=== PATIENT | male | born 1975 | race Hispanic/Latino ===

== ENCOUNTER → 2017-09-23 | Outpatient (CLI) | payer OTHER | LOC: YCFC.O 09-18 17:21 | DX: Z00.00 Encounter for general adult medical examination without abnormal findings (principal) ==

== ENCOUNTER → 2018-02-24 | Outpatient (CLI) | payer OTHER | LOC: YCFC.O 02-19 13:10 | DX: E11.65 Type 2 diabetes mellitus with hyperglycemia (principal) ==

== ENCOUNTER → 2018-06-24 | Outpatient (CLI) | payer OTHER | LOC: LAB.O 10:47 | PROVIDERS: ATTEND Family Medicine | DX: E11.9 Type 2 diabetes mellitus without complications (principal) ==

== ENCOUNTER → 2018-09-23 | Outpatient (CLI) | payer OTHER | LOC: YCFC.O 10:08 | PROVIDERS: ATTEND Family Medicine | DX: E11.9 Type 2 diabetes mellitus without complications (principal); E78.5 Hyperlipidemia, unspecified; R53.83 Other fatigue ==

== ENCOUNTER → 2019-03-31 | Outpatient (CLI) | payer OTHER | LOC: YCFC.O 08:48 | PROVIDERS: ATTEND Family Medicine | DX: E11.9 Type 2 diabetes mellitus without complications (principal); E78.5 Hyperlipidemia, unspecified ==

== ENCOUNTER → 2019-09-22 | Outpatient (CLI) | payer OTHER | LOC: YCFC.O 08:59 | PROVIDERS: ATTEND Family Medicine | DX: E78.5 Hyperlipidemia, unspecified (principal); E11.9 Type 2 diabetes mellitus without complications ==

== ENCOUNTER → 2019-09-29 | Outpatient (CLI) | payer OTHER | LOC: YCFC.O 10:35 | PROVIDERS: ATTEND Family Medicine | DX: D64.9 Anemia, unspecified (principal) ==

== ENCOUNTER → 2019-10-26 | Outpatient (CLI) | payer OTHER | LOC: YCFC.O 08:45 | PROVIDERS: ATTEND Family Medicine | DX: D64.9 Anemia, unspecified (principal) ==

== ENCOUNTER → 2019-12-21 | Outpatient (CLI) | payer OTHER | LOC: LAB.O 09:36 | PROVIDERS: ATTEND Family Medicine | DX: E11.9 Type 2 diabetes mellitus without complications (principal); D64.9 Anemia, unspecified ==

== ENCOUNTER → 2020-05-27 | Outpatient (CLI) | payer OTHER | LOC: YCFC.O 14:59 | PROVIDERS: ATTEND Family Medicine | DX: Z20.822 Contact with and (suspected) exposure to COVID-19 (principal) ==

== ENCOUNTER → 2020-06-21 | Outpatient (CLI) | payer SELFPAY | LOC: YCFC.O 09:14 | PROVIDERS: ATTEND Family Medicine | DX: D64.9 Anemia, unspecified (principal); E11.9 Type 2 diabetes mellitus without complications ==